=== PATIENT | male | born 1945 | race Caucasian/White ===

== ENCOUNTER 2017-02-25 17:12 | Emergency (ER) | payer OTHER ==
[~2017-02-25] VITALS: Ht 172.7 cm; Wt 110.3 kg
[~2017-02-25 17:12] MED LIST: ARTHRITIS PAIN650 M1 PO; ASPIR-LOW81 MG PO; CLOPIDOGREL75 MG PO; DIABETIC PILL; FISH OIL 1,4001 EACH PO; FLOMAX0.4 MG PO; GLIPIZIDE10 MG PO; GLUCOPHAGE XR,500 MG PO; LANTUS 3 M100 UNITS1 SC; LEXAPRO10 MG PO; LISINOPRIL10 MG PO; METOPROLOL TART25 MG PO; NITROSTAT0.4 MG SL; SIMVASTATIN20 MG PO; TOPAMAX50 MG PO; WELLBUTRIN XL150 MG PO
[2017-02-25 17:40] LABS: ADD MIUA? YES; BILIRUBIN NEGATIVE; BLOOD LARGE; COLOR AMBER ((YELLOW)); GLUCOSE (STRIP) >=500; KETONES NEGATIVE; LEUKOCYTES NEGATIVE; NITRITE NEGATIVE; PROTEIN (STRIP) 100; SPECIFIC GRAVITY 1.016 (1.000-1.030); UROBILINOGEN 0.2 MG/DL (0.2-1.0)
[2017-02-25 17:46] LABS: BACTERIA RARE /HPF; EPITHELIAL CELLS NONE SEEN /HPF; MUCUS TRACE /LPF; RED BLOOD CELLS TNTC /HPF (0-5); UCUL ADDED? NO
[2017-02-25 19:03] LABS: EOSINOPHIL (%) 4.7 % (0-5); EOSINOPHIL COUNT 0.4 K/uL (0-0.3); HEMATOCRIT 51.2 % (38.0-50.0); IMMATURE GRANULOCYTE (%) 0.4 % (0.0-0.7); INSTRUMENT ABS NEUTROPHIL CT 4.2 K/uL; LYMPHOCYTE COUNT 2.6 K/uL (1.0-2.8); MCH 30.5 PG (29.0-34.0); MCHC 34.2 G/DL (30.0-36.0); MCV 89.4 FL (86-99); MEAN PLAT.VOLUME 10.7 uM^3 (9.0-12.4); MONOCYTE (%) 8.6 % (3-12); MONOCYTE COUNT 0.7 K/uL (0-0.8); NEUTROPHIL (%) 52.7 % (45-76); NEUTROPHIL COUNT 4.2 K/uL (1.8-6.4); PLATELET COUNT 245 K/uL (156-360); RBC DIS.WIDTH-CV 12.4 % (11.8-14.6); RBC DIS.WIDTH-SD 40.7 % (39-53); RED BLOOD COUNT 5.73 M/uL (4.00-5.50); WHITE BLOOD COUNT 7.9 K/uL (4.1-10.2)
[2017-02-25 19:15] LABS: CHLORIDE 100 mEq/L (99-109); POTASSIUM 4.4 mEq/L (3.7-5.4); SODIUM 136 mEq/L (136-147)
[2017-02-25 19:16] LABS: INTER. NORMALIZED RATIO 1.1; PROTHROMBIN TIME 10.7 (9.2-11.2); PTT 27.1 (25-32)
[2017-02-25 19:17] LABS: GLUCOSE 326 mg/dL (70-99)
[2017-02-25 19:18] LABS: ANION GAP 12 MEQ/L (2-14)
[2017-02-25 19:19] LABS: TOTAL BILIRUBIN 0.7 mg/dL (0.0-1.0)
[2017-02-25 19:21] LABS: ALKALINE PHOSPHATASE 82 IU/L (3-129); GFR ESTIMATE (CALCULATED) 58 mL/min/
[2017-02-25 19:22] LABS: UREA NITROGEN (BUN) 16 mg/dL (9-23)
[2017-02-25 20:30] VITALS: BP 175/91
== END 2017-02-25 20:31 | disposition home or self-care (01) ==
LOC: EME 17:12
PROVIDERS: Physician Assistant
DX: R31.9 Hematuria, unspecified (principal); I10 Essential (primary) hypertension; Z79.01 Long term (current) use of anticoagulants; N32.9 Bladder disorder, unspecified; E11.65 Type 2 diabetes mellitus with hyperglycemia; E78.5 Hyperlipidemia, unspecified; I25.2 Old myocardial infarction; Z98.61 Coronary angioplasty status; Z87.891 Personal history of nicotine dependence; Z79.84 Long term (current) use of oral hypoglycemic drugs; Z79.4 Long term (current) use of insulin
CPT/HCPCS: 74176; 80053; 81003; 85025; 85610; 85730; 87086; 99281; 99284